=== PATIENT | male | born 1995 | race Two or more races ===

== ENCOUNTER 2020-03-17 20:05 | Emergency (ER) | payer SELFPAY ==
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
[2020-03-17 21:28] LABS: BASOPHILS % (AUTO) 1 % (0-1); EOSINOPHILS % (AUTO) 1 % (1-7); LYMPHOCYTES % (AUTO) 15 % (22-44); MEAN CORPUSCULAR HEMOGLOBIN 33.3 pg (27.5-34.5); MEAN CORPUSCULAR HGB CONC 34.6 g/dL (33.2-36.2); MEAN PLATELET VOLUME 7.5 fL (7.4-10.4); MONOCYTES % (AUTO) 14 % (2-9); NEUTROPHILS % (AUTO) 70 % (42-75); PLATELET COUNT 215 x10^3/uL (130-400); RED BLOOD COUNT 4.72 x10^6/uL (4.38-5.82)
[2020-03-17 21:30] LABS: MD NO
--- NOTE | 2020-03-17 21:35 | NUR ---
Pt girlfriend Caitlyn Elizalde called. Patient has said it is ok for information to be released to her.
[2020-03-17 21:40] LABS: ALBUMIN 3.7 g/dL (3.4-5.0); ANION GAP 7 mmol/L (5-15); CALCIUM 8.6 mg/dL (8.5-10.1); CHLORIDE 107 mmol/L (98-107)
[2020-03-17 21:41] LABS: SALICYLATE LEVEL < 1.7 mg/dL (2.8-20.0)
[2020-03-17 21:42] LABS: CREATININE 1.06 mg/dL (0.7-1.3)
[2020-03-17 22:01] LABS: AMPHETAMINE SCREEN, URINE Negative (Negative); BARBITURATE SCREEN, URINE Negative (Negative); BENZODIAZEPINE SCREEN, URINE Positive (Negative); CANNABINOID SCREEN, URINE Positive (Negative); COCAINE SCREEN, URINE Negative (Negative); METHADONE SCREEN, URINE Negative (Negative); OPIATE SCREEN, URINE Negative (Negative)
--- NOTE | 2020-03-17 22:54 | NUR ---
Patients girlfriend number for ride [phone]
[2020-03-18 00:12] VITALS: BP 132/78
== END 2020-03-18 00:31 | disposition home or self-care (01) ==
LOC: ED 20:55
DX: F41.1 Generalized anxiety disorder (principal); F10.150 Alcohol abuse with alcohol-induced psychotic disorder with delusions; R00.0 Tachycardia, unspecified; Y90.9 Presence of alcohol in blood, level not specified
CPT/HCPCS: 36415; 80048; 80307; 82040; 85025; 99283